=== PATIENT | female | born 1990 | race Caucasian/White ===

== ENCOUNTER 2024-01-30 11:24 | Emergency (ER) | payer OTHER, SELFPAY ==
[2024-01-30 11:28] VITALS: BP 134/94; PULSE 75; TEMP 36.8; O2SAT 97; BMI 34.4
--- NOTE | 2024-01-30 11:50 | ED_ITS ---
HPI HPI - General Adult General Chief complaint: Headache Stated complaint: FLU LIKE SYMPTOMS Time Seen by Provider: 01/30/24 11:32 History of Present Illness HPI narrative: Patient is coming to the ER with 2 to 3 days history of flulike symptoms, usually gets allergy shots and she did get her allergy shot yesterday and noted today that the patient has been having more generalized body ache. She is denying any rash but she has been having headache even before the allergy shots, the patient have generalized body ache ,she also have runny nose, dry cough ,frontal headache She have no abdominal pain diarrhea or nausea or vomiting Related Data Home Medications ?Medication ?Instructions ?Recorded ?Confirmed epinephrine 0.3 mg/0.3 mL 0.3 mg IM 01/30/24 injection, auto-injector hydroxyzine HCl 25 mg tablet 25 mg PO Q8H PRN itching 01/30/24 01/30/24 montelukast 10 mg tablet 10 mg PO DAILY 01/30/24 01/30/24 Allergies Allergy/AdvReac Type Severity Reaction Status Date / Time acetaminophen (From Vicodin) AdvReac Severe Vomiting Verified 01/30/24 11:32 hydrocodone (From Vicodin) AdvReac Severe Vomiting Verified 01/30/24 11:32 Opioid HPI Opioid Management Most Recent Opioid Data: No Data to Display Review of Systems ROS Status of ROS 10 or more systems reviewed and unremark able except as noted in history and below PFSH PFSH Social History Little interest or pleasure in doing things: not at all Feeling down, depressed, or hopeless: not at all Exam Narrative Exam Narrative: Nurses notes and vital signs reviewed and patient is not hypoxic. General: Well-appearing and in no apparent distress. Skin: Warm, dry, no pallor noted. No rash. Head: Normocephalic, atraumatic. Neck: Supple, non-tender. Eye: Pupils are equal, round and EOMI. No scleral icterus. Ears, Nose, Mouth, and Throat: TM are clear, no nasal mucosal hypertrophy. Oral mucosa is moist, no posterior oropharynx erythema, uvula is mid-line Cardiovascular: Regular Rate and Rhythm without murmur, gallop or rub. Respiratory: No accessory muscle use or respiratory distress. Lungs are clear to auscultation, no wheezing, rales or rhonchi Chest Wall: no tenderness Back: No midline thoracic or lumbar vertebral tenderness. No CVA tenderness Musculoskeletal: normal ROM, no calf or popliteal tenderness, no lower extrem ity edema/swelling GI: Abdomen is soft, non-distended. Normal bowel sounds. No masses appreciated. No tenderness to palpation. No rebound, guarding, or rigidity noted. Neurological: A&O x4. No cranial nerve dysfunction observed. No truncal ataxia. Moves all extremities. Sensation intact. Psychiatric: Cooperative and interactive. Normal mood and affect. Constitutional Vital Signs, click to edit/add: Last Vital Signs Temp 98.3 F 01/30/24 11:28 Pulse 75 01/30/24 11:28 Resp 20 01/30/24 11:28 BP 134/94 H 01/30/24 11:28 Pulse Ox 97 01/30/24 11:28 O2 Del Method Room Air 01/30/24 11:28 Course Vital Signs Vital signs: Vital Signs Temperature 98.3 F 01/30/24 11:28 Pulse Rate 75 01/30/24 11:28 Respiratory Rate 20 01/30/24 11:28 Blood Pressure 134/94 H 01/30/24 11:28 Pulse Oximetry 97 01/30/24 11:28 Oxygen Delivery Method Room Air 01/30/24 11:28 Temperature 98.3 F 01/30/24 11:28 Pulse Rate 75 01/30/24 11:28 Respiratory Rate 20 01/30/24 11:28 Blood Pressure 134/94 H 01/30/24 11:28 Pulse Oximetry 97 01/30/24 11:28 Oxygen Delivery Method Room Air 01/30/24 11:28 Medical Decision Making [facility] Narrative Medical decision making narrative: 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 The patient agrees with the following Diagnosis and Treatment plan and the patient will be discharged home. Lab Data Labs: Lab Results 01/30/24 Range/Units 11:45 Influenza Type A Ag Negative Influenza Type B Ag Negative SARS-CoV-2 Ag (CV2AG) Negative (NEGATIVE) Discharge Plan Discharge Chief Complaint: Headache Clinical Impression: Acute viral syndrome Patient Disposition: Home, Self-Care Time of Disposition Decision: 12:06 Condition: Good Prescriptions / Home Meds: No Action montelukast 10 mg tablet 10 mg PO DAILY hydroxyzine HCl 25 mg tablet 25 mg PO Q8H PRN (Reason: itching) epinephrine 0.3 mg/0.3 mL auto-injector 0.3 mg IM Print Language: Spanish Instructions: Viral Syndrome (ED) Referrals: Physician,Non-Staff, MD [Primary Care Provider] - 1 week
[2024-01-30 12:04] LABS: Influenza Virus A Antigen Negative; Influenza Virus B Antigen Negative; Internal Control Within Normal Limits; SARS-CoV-2 Ag NEGATIVE (NEGATIVE)
[2024-01-30] MEDS: KETOROLAC TROMETHAMINE 60 MG/2 ML VIAL IM (12:30)
== END 2024-01-30 12:40 | disposition home or self-care (01) ==
PROVIDERS: Emergency Provider Emergency Medicine
DX: B34.9 Viral infection, unspecified (principal)
CPT/HCPCS: 87804; 87811; 96372; 99284; J1885